=== PATIENT | male | born 1935 | race Caucasian/White ===

== ENCOUNTER 2018-01-11 08:25 | Emergency (ER) | payer MEDICARE, OTHER ==
[~2018-01-11] VITALS: Ht 177.8 cm; Wt 70.0 kg
[~2018-01-11 08:25] MED LIST: ATOR20TA PO; DONE10TA14 PO; FINA1TAB2 PO; FISH100020 PO; FLAX100013 PO; HYDR-2768 PO; LOVA20TA PO; NAME10TA PO; VITA100018 PO
[2018-01-11 09:18] VITALS: BP 142/70; PULSE 60; RESP 16; TEMP 98.2; O2SAT 99
[2018-01-11] MEDS ORDERED: SODIUM CHLORID 0.9% 500 ML INJ 500 ML IV ONE (09:30)
[2018-01-11 10:09] LABS: BACTERIA, URINE RARE /hpf; BILIRUBIN, URINE NEG (NEG); BLOOD, URINE NEG (NEG); GLUCOSE,URINE NEG (NEG); HYALINE CAST, URINE 4 /lpf (RARE); KETONE, URINE NEG (NEG); NITRITE,URINE NEG (NEG); TRANSITIONAL EPI CELLS, URINE 1 /hpf; URINE COLOR YELLOW (YELLW/STRAW); URINE LEUKOCYTE ESTERASE NEG (NEG)
[2018-01-11 10:10] LABS: AUTOMATED NEUTROPHIL # 6.3 TH/MM3 (1.8-7.7); BASOPHIL % 0.4 % (0.0-2.0); EOSINOPHIL # 0.1 TH/MM3 (0-0.4); EOSINOPHIL % 1.4 % (0.0-4.0); HEMATOCRIT 32.9 % (39.0-51.0); HEMOGLOBIN 11.5 GM/DL (13.0-17.0); LYMPH % 11.6 % (9.0-44.0); MEAN CELL VOLUME 90.2 FL (80.0-100.0); MEAN CORPUSCULAR HEMOGLOBIN 31.5 PG (27.0-34.0); MEAN CORPUSCULAR HGB CONC 34.9 % (32.0-36.0); MEAN PLATELET VOLUME 7.6 FL (7.0-11.0); MONO % 13.2 % (0.0-8.0); MONOCYTE # 1.1 TH/MM3 (0-0.9); NEUT % 73.4 % (16.0-70.0); PLATELET COUNT 248 TH/MM3 (150-450); RED BLOOD COUNT 3.64 MIL/MM3 (4.50-5.90); RED CELL DISTRIBUTION WIDTH 12.7 % (11.6-17.2); WHITE BLOOD COUNT 8.7 TH/MM3 (4.0-11.0)
[2018-01-11 10:23] LABS: BICARBONATE 31.7 MEQ/L (21.0-32.0); CALCIUM 8.3 MG/DL (8.5-10.1); CREATININE 1.3 MG/DL (0.60-1.30)
[2018-01-11] MEDS ORDERED: POTASSIUM CHLORIDE 20 MEQ CONTROLLED RELEASE TAB PO ONE (10:30)
[2018-01-11] MEDS ORDERED: POTASSIUM CHLOR 20 MEQ PREMIX 100 ML IV ONE (10:45)
--- NOTE | 2018-01-11 10:45 | PD ---
HPI Chief Complaint: Medical Clearance Time Seen by Provider: 09:27 Travel History International Travel<30 days: No Contact w/Intl Traveler<30days: No Traveled to known affect area: No History of Present Illness HPI 82-year-old male came to the emergency room with history of altered mental status as mentioned by the long term. Patient has baseline dementia and GCS of 14 which is extremely confused. Apparently they were having hard time waking the patient up. Once patient has been here he has been awake and back to his baseline. He is denying of any pain or anything. Vital signs are stable. Patient is unable to give any meaningful history. [facility] Past Medical History Narrative Medical List of his past medical, surgical, social and family history is reviewed from the nursing note. Diabetes: No Diminished Hearing: No Genitourinary: Yes (ENLARGED PROSTATE) Immunizations Current: No Past Surgical History Cardiac Surgery: Yes (PACER IMPLANTED.) Eye Surgery: Yes (SURG FOR CROSSSED EYES.) Genitourinary Surgery: Yes Pacemaker: Yes ([facility]) Social History Alcohol Use: No Tobacco Use: No Substance Use: No Allergies-Medications (Allergen,Severity, Reaction): Coded Allergies: No Known Allergies (Verified , 01/26/16) Comments No known drug allergies. Reported Meds & Prescriptions Reported Meds & Active Scripts Active Reported Hctz (Hydrochlorothiazide) 25 Mg Tab 25 Mg PO DAILY Lovastatin 20 Mg Tab 10 Mg PO HS Atorvastatin 20 mg tab (Atorvastatin Calcium) 20 Mg Tab 20 Mg PO DAILY 30 Days Donepezil HCl (Donepezil Hydrochloride) 10 Mg Tab 1 Tab PO DAILY Namenda (Memantine) 10 Mg Tab 10 Mg PO DAILY Finasteride (Finasteride (Alopecia)) 1 Mg Tab 1 Mg PO DAILY Vitamin D (Cholecalciferol) 1,000 Unit Tab 1,000 Unit PO DAILY Flax Seed Oil (Flaxseed (Linseed)) 1,000 Mg Cap 1 Tab PO DAILY Fish Oil ([place]-3 Fatty Acids) 1,000 Mg Cap 1,000 Mg PO DAILY Narrative Medication List of his home medications reviewed from the nursing note. Review of Systems ROS Limitations: Altered Mental Status Except as stated in HPI: all other systems reviewed are Neg Physical Exam Narrative GENERAL: Awake, alert, mostly nonverbal but confused, no obvious distress SKIN: Focused skin assessment warm/dry. HEAD: Atraumatic. Normocephalic. EYES: Pupils equal and round. No scleral icterus. No injection or drainage. ENT: No nasal bleeding or discharge. Mucous membranes pink and moist. NECK: Trachea midline. No JVD. CARDIOVASCULAR: Regular rate and rhythm. No murmur appreciated. RESPIRATORY: No accessory muscle use. Clear to auscultation. Breath sounds equal bilaterally. GASTROINTESTINAL: Abdomen soft, non-tender, nondistended. Hepatic and splenic margins not palpable. MUSCULOSKELETAL: No obvious deformities. No clubbing. No cyanosis. No edema. NEUROLOGICAL: Confused, dementia. No obvious cranial nerve deficits. Motor grossly within normal limits. Mostly nonverbal PSYCHIATRIC: Appropriate mood and affect; insight and judgment normal. Data Data Last Documented VS Orders Orders Complete Blood Count With Diff (01/11/18 09:27) Basic Metabolic Panel (Bmp) (01/11/18 09:27) Urinalysis - C+S If Indicated (01/11/18 09:27) Sodium Chlorid 0.9% 500 Ml Inj (Ns 500 M (01/11/18 09:30) Urine Culture (01/11/18 09:37) Potassium Chloride (Kcl) (01/11/18 10:30) Potassium Chlor 20 Meq Premix (Kcl 20 Me (01/11/18 10:45) Ed Discharge Order (01/11/18 10:40) Electrocardiogram (01/11/18 ) Ct Brain W/O Iv Contrast(Rout) (01/11/18 ) Haloperidol Inj (Haldol Inj) (01/11/18 11:45) Electrocardiogram (01/11/18 12:39) Labs Laboratory Tests Test 01/11/18 09:37 White Blood Count 8.7 TH/MM3 Red Blood Count 3.64 MIL/MM3 Hemoglobin 11.5 GM/DL Hematocrit 32.9 % Mean Corpuscular Volume 90.2 FL Mean Corpuscular Hemoglobin 31.5 PG Mean Corpuscular Hemoglobin Concent 34.9 % Red Cell Distribution Width 12.7 % Platelet Count 248 TH/MM3 Mean Platelet Volume 7.6 FL Neutrophils (%) (Auto) 73.4 % Lymphocytes (%) (Auto) 11.6 % Monocytes (%) (Auto) 13.2 % Eosinophils (%) (Auto) 1.4 % Basophils (%) (Auto) 0.4 % Neutrophils # (Auto) 6.3 TH/MM3 Lymphocytes # (Auto) 1.0 TH/MM3 Monocytes # (Auto) 1.1 TH/MM3 Eosinophils # (Auto) 0.1 TH/MM3 Basophils # (Auto) 0.0 TH/MM3 CBC Comment DIFF FINAL Differential Comment Urine Color YELLOW Urine Turbidity CLEAR Urine pH 7.0 Urine Specific [place] 1.013 Urine Protein NEG mg/dL Urine Glucose (UA) NEG mg/dL Urine Ketones NEG mg/dL Urine Occult Blood NEG Urine Nitrite NEG Urine Bilirubin NEG Urine Urobilinogen LESS THAN 2.0 MG/DL Urine Leukocyte Esterase NEG Urine RBC 1 /hpf Urine WBC LESS THAN 1 /hpf Urine Transitional Epithelial Cells 1 /hpf Urine Bacteria RARE /hpf Urine Hyaline Casts 4 /lpf Microscopic Urinalysis Comment CATH-CULTURE IND Blood Urea Nitrogen 19 MG/DL Creatinine 1.30 MG/DL Random Glucose 93 MG/DL Calcium Level 8.3 MG/DL Sodium Level 141 MEQ/L Potassium Level 3.1 MEQ/L Chloride Level 106 MEQ/L Carbon Dioxide Level 31.7 MEQ/L Anion Gap 3 MEQ/L Estimat Glomerular Filtration Rate 53 ML/MIN MDM Medical Decision Making Medical Screen Exam Complete: Yes Emergency Medical Condition: Yes Medical Record Reviewed: Yes Interpretation(s) Twelve-lead EKG was reviewed by me. Paced rhythm. Heart rate of 60 bpm. Differential Diagnosis Electrolyte abnormality, dehydration, UTI Narrative Course 10:44 AM patient was given 500 cc IV fluid bolus. Blood test results of back and patient has some hypokalemia. I initially ordered by mouth potassium but nurse told me that he will not take the pills. I'll change it to IV potassium. From my standpoint patient after that could be discharged back to the long term. Nurse will call med 1 for transportation. 2 PM patient became extremely difficult to manage getting IV potassium initially. He ripped off his IV line twice. I had to sedate him with IM Haldol. A head CT was also obtained because of his sudden change in behavior which was read negative. Once again once the patient received the potassium replacement he'll be discharged back to the long term. Procedures EKG Prior to Arrival: No Diagnosis Primary Impression: Alzheimer's dementia Qualified Codes: G30.9 - Alzheimer's disease, unspecified; F02.81 - Dementia in other diseases classified elsewhere with behavioral disturbance Additional Impression: Hypokalemia Referrals: Primary Care Physician Additional Instructions: Return to the ER if condition worsens or any other new concerns Disposition: 01 DISCHARGE HOME Condition: Stable Rickie Belcher MD Jan 11, 2018 10:45
[2018-01-11] MEDS ORDERED: HALOPERIDOL LACTATE 5 MG/ML AMP IM ONE (11:45)
--- NOTE | 2018-01-11 12:14 | RADRPT ---
EXAM DATE/TIME: 01/11/2018 11:56 [facility] COMPARISON: No previous studies available for comparison. INDICATIONS : Altered mental status,was unresponsive for five minutes this RADIATION DOSE: 38.45 CTDIvol (mGy) MEDICAL HISTORY : Enlarge prostate SURGICAL HISTORY : Pacemaker. ENCOUNTER: Initial ACUITY: 1 day PAIN SCALE: 0/10 LOCATION: cranial TECHNIQUE: Multiple contiguous axial images were obtained of the head. Using automated exposure control and adj ustment of the mA and/or kV according to patient size, radiation dose was kept as low as reasonably a chievable to obtain optimal diagnostic quality images. DICOM format image data is available electro nically for review and comparison. FINDINGS: Previous small right subdural hematoma has resolved. There is some cortical volume loss which is stab le. Ventricular size is relatively stable. No acute hemorrhage, mass effect or shift. No recent infar ct identified. CONCLUSION: 1. No acute intracranial abnormalities. Mucosal thickening in the paranasal sinuses. Abdi Adair MD on January 11, 2018 at 12:09 Board Certified Radiologist. This report was verified electronically.
--- NOTE | 2018-01-11 19:56 | EKG ---
Date Performed: 01/11/2018 Time Performed: 08:40:07 PTAGE: 82 years EKG: ELECTRONIC ATRIAL PACEMAKER ELECTRONIC VENTRICULAR PACEMAKER ABNORMAL RHYTHM ECG PREVIOUS TRACING : 01/26/2016 16.31 Since the prior tracing, there has been no significant ku DOCTOR: Kimberly Goldsmith Interpretating Date/Time 01/11/2018 19:55:07
--- NOTE | 2018-01-11 19:56 | EKG ---
Date Performed: 01/11/2018 Time Performed: 12:39:25 PTAGE: 82 years EKG: ELECTRONIC ATRIAL PACEMAKER INTRAVENTRICULAR CONDUCTION DELAY ABNORMAL ECG INTERPRETATION B ASED ON A DEFAULT AGE OF 40 YEARS PREVIOUS TRACING 01/11/18 @ 08.40 Since the prior tracing, there has been no significant change DOCTOR: Kimberly Goldsmith Interpretating Date/Time 01/11/2018 19:55:43
== END 2018-01-11 15:24 | disposition home or self-care (01) ==
LOC: NEPE 08:25
DX: G30.9 Alzheimer's disease, unspecified (principal); F02.81 Dementia in other diseases classified elsewhere, unspecified severity, with behavioral disturbance; E87.6 Hypokalemia
CPT/HCPCS: 70450; 80048; 81001; 85025; 87086; 93005; 96361; 96365; 96366; 96372; 99285; J1630; J3480; J7040